=== PATIENT | female | born 1965 | race Caucasian/White ===

== ENCOUNTER → 2016-12-26 | Outpatient (CLI) | payer OTHER, BC ==
[2016-12-26 07:06] LABS: CHOLESTEROL LEVEL 183 MG/DL (<200); FREE T4 1.06 NG/DL (0.76-1.46); TRIGLYCERIDES LEVEL 82 MG/DL (<150)
[2016-12-26 10:43] LABS: THYROID PEROXIDASE ANTIBODY > 1300.0 U/ML (<60.0)
== END ==
LOC: M LAB 06:03
PROVIDERS: ATTEND Family Medicine
DX: E03.9 Hypothyroidism, unspecified (principal); E78.00 Pure hypercholesterolemia, unspecified; E55.9 Vitamin D deficiency, unspecified

== ENCOUNTER → 2017-02-02 | Outpatient (REF) | payer OTHER, BC ==
[~2017-02-02] MED LIST: ACET30TAB PO; BIOT10005 PO; CIPR500T3 PO; FLOM5CAP PO; GLUCPOW24 PO; KETO10TAB PO; LEVO88TA3 PO; PERCOCET PO; VITA100037 PO
[2017-02-02 22:22] LABS: MICROSCOPIC INDICATED? MAN YES (NO)
[2017-02-02 22:31] LABS: MICROSCOPIC EXAM PERFORMED
[2017-02-02 22:32] LABS: BACTERIA, URINE MOD AMOUNT; HYALINE CAST, URINE NONE SEEN /lpf (0-1); RBC, URINE 30-40 /hpf (0-3); SQUAMOUS EPITHELIAL CELL URINE MOD AMOUNT /hpf (SMALL AMT)
== END ==
LOC: M LAB REF 08:57
PROVIDERS: ATTEND Physician Assistant
DX: N39.0 Urinary tract infection, site not specified (principal)

== ENCOUNTER → 2017-02-05 | Outpatient (CLI) | payer OTHER, BC ==
--- NOTE | 2017-02-05 10:33 | REP ---
Clinical: Left flank pain. Findings: Mild acute left-sided obstructive uropathy with hydronephrosis and proximal hydroureter and associated periureteral stranding with a 6 mm obstructing calculus at the ureteropelvic junction (images 55 - 56). 1 mm nonobstructing left renal calculus also identified. Right kidney/ureter and bladder appear normal. Liver, spleen, pancreas, gallbladder, and bilateral adrenal glands are normal for noncontrast evaluation. The enteric system is without obstruction or acute inflammatory process. Pelvis demonstrates normal bladder and suspected myomatous changes to the uterus. Small amount of pelvic free fluid is nonspecific. Mild atherosclerotic changes to the aorta and vasculature without aneurysm. No ascites. No free air. No obvious adenopathy. Musculoskeletal structures are intact. Lung bases are clear. Impression: 1. Mild acute left-sided obstructive uropathy with a 6 mm obstructing calculus at the ureteropelvic junction and 1 mm nonobstructing left renal stone right kidney/ureter and bladder are normal. 2. Presumed myomatous changes to the uterus. Signed by Nikko Sommer MD 02/05/2017 10:24 A
== END ==
LOC: M RAD 09:58
PROVIDERS: ATTEND Physician Assistant Medical
DX: R10.9 Unspecified abdominal pain (principal)

== ENCOUNTER → 2017-02-06 | Day surgery (SDC) | payer OTHER, BC ==
[~2017-02-06] MED LIST changes: -BIOT10005 PO; +BIOT10008 PO; +CIPROFLOXACIN 500 MG TAB PO SCH; +CLINDAMYCIN 900 MG in APPROPRIATE DILUENT 1 EA IV ONE; +CONRAY-60 60% 50ML VIAL (Q9961) As Ordered ONE; +LIDOCAINE 2% INJ 100 MG/5 ML SDV (FOR ANES.) As Ordered ONE; +LR 1,000 ML IV SCH; +MEPERIDINE INJ 25 MG/ML VIAL (J2175) As Ordered ONE; +METOCLOPRAMIDE INJ 10MG/2ML VIAL (J2765) As Ordered ONE; +METOCLOPRAMIDE INJ 10MG/2ML VIAL (J2765) IV PRN; +MIDAZOLAM INJ 2 MG/2 ML VIAL (J2250) As Ordered ONE; +ONDANSETRON 4MG/2ML VIAL (J2405) As Ordered ONE; +ONDANSETRON 4MG/2ML VIAL (J2405) IV PRN; +PERCOCET 5MG/325MG TAB PO PRN; +PROPOFOL 200 MG/20 ML VIAL As Ordered ONE; -VITA100037 PO; +VITA100067 PO; +fentaNYL 100 MCG/2 ML INJECTION (J3010) As Ordered ONE; +fentaNYL 100 MCG/2 ML INJECTION (J3010) IV PRN
[2017-02-06] MEDS: MEPERIDINE INJ 25 MG/ML VIAL (J2175) IV PRN ×2 (19:10→19:15)
[2017-02-06 20:24] VITALS: BP 134/61
--- NOTE | 2017-02-07 06:45 | REP ---
Retrograde pyelogram: Three views. History: Ureteral stone. 1 minute 16 seconds of fluoroscopy time is reported. Findings: A sequence of three fluoroscopically obtained last image hold spot radiographs of the left abdomen document left ureteral cannulation, contrast injection, and double pigtail ureteral stent placement. Signed by Michael Wiley MD 02/07/2017 07:58 A
--- NOTE | 2017-02-07 10:57 | RO ---
DATE OF PROCEDURE: 02/06/2017 PREPROCEDURE DIAGNOSIS: Left ureteral stone 6 mm in diameter. POSTPROCEDURE DIAGNOSES: Left 6 mm proximal ureteral stone, plus a 2 mm lower pole kidney stone. PROCEDURE: Cystoscopy, plus left retrograde pyelogram, plus left ureteroscopy, plus laser stone lithotripsy, plus left basket extraction of stones, plus left double J stent placement 6-Gu[place]ian universal Cook. SURGEON: Dr. Donis Norman DIRECTOR OF ANALYTICS: None. ANESTHESIA: General. COMPLICATIONS: None. ESTIMATED BLOOD LOSS: N/A HISTORY OF PRESENT ILLNESS: This is a 51-year-old female patient that has a left 6 mm proximal ureteral stone. The patient has left hydronephrosis and a 2 mm lower pole kidney stone. The patient has consented for a cystoscopy plus left retrograde pyelogram plus left ureteroscopy, plus laser stone lithotripsy, plus left basket extraction of stones, plus left double J stent placement. DESCRIPTION OF PROCEDURE: The patient under general anesthesia in supine modified low lithotomy position, after prepping and draping the area of concern, which included the entire genitalia and abdomen. We started by introducing a cystoscope, #21-Guamanian in diameter with a videoscopic guidance. The urethra and bladder neck were totally normal. The bladder had no tumors. No stones. No foreign objects. Both ureteral orifices were excreting clear urine. We then proceeded to pass a #5-Guamanian Pollack catheter into the left ureter and did a retrograde pyelogram. There was a stone 6 mm in diameter in the left proximal ureter. There was a small stone in the lower pole of the kidney in the left side. After this, we passed the guidewire up to the kidney bypassing the stone. We took the Pollack catheter out and the cystoscopy. We passed a 28 cm in length, #4-Guamanian in diameter parallel ureteral access sheath following the guidewire up to the proximal ureter. We took the obturator out and passed a flexible ureteroscopy up the ureteral stone. We identified an impacted ureteral stone of about 6 mm in diameter. We passed a 200 micron probe holmium laser and laser lithotripsy the stone into multiple pieces at a power of 0.6 and a rate of 6. With a 0-tip basket, we grabbed the stones and took it out of the body of the patient. We then went into the kidney and did a formal nephroscopy, upper pole, mid pole and lower pole. We found a 2 mm kidney stone in the lower pole and grabbed it and took it out of the body of the patient. We then performed a nephroscopy with a flexible ureteral scope and nephrogram. There were no more stones left behind. We then did a retro ureteroscopy by removing the flexible ureteroscope and ureteral axis sheath at the same time. There were no stones in the ureter. At that moment in time, we took the ureteroscope and the ureteral access sheath and placed the cystoscope following the guidewire. Following the guidewire, we placed a double J stent, #6 Gu[place]ian universal Cook up to the kidney. Once the stent was in good position, we took the guidewire out. We could see the curl in the kidney and the curl in the bladder. We then emptied the bladder. There were no complications.
== END | disposition home or self-care (01) ==
LOC: M SDC 13:31
PROVIDERS: ATTEND Urology
DX: N20.2 Calculus of kidney with calculus of ureter (principal); E03.9 Hypothyroidism, unspecified; Z88.1 Allergy status to other antibiotic agents; Z88.6 Allergy status to analgesic agent; Z79.899 Other long term (current) drug therapy; Z86.14 Personal history of Methicillin resistant Staphylococcus aureus infection
CPT/HCPCS: 52356; 76000; 82360; 88300; C1726; C2617; J2175; J2250; J2405; J2765; J3010; Q9961

== ENCOUNTER → 2017-02-06 | Outpatient (CLI) | payer OTHER, BC ==
[~2017-02-06] MED LIST changes: -CIPROFLOXACIN 500 MG TAB PO SCH; -CLINDAMYCIN 900 MG in APPROPRIATE DILUENT 1 EA IV ONE; -CONRAY-60 60% 50ML VIAL (Q9961) As Ordered ONE; -LIDOCAINE 2% INJ 100 MG/5 ML SDV (FOR ANES.) As Ordered ONE; -LR 1,000 ML IV SCH; -MEPERIDINE INJ 25 MG/ML VIAL (J2175) As Ordered ONE; -METOCLOPRAMIDE INJ 10MG/2ML VIAL (J2765) As Ordered ONE; -METOCLOPRAMIDE INJ 10MG/2ML VIAL (J2765) IV PRN; -MIDAZOLAM INJ 2 MG/2 ML VIAL (J2250) As Ordered ONE; -ONDANSETRON 4MG/2ML VIAL (J2405) As Ordered ONE; -ONDANSETRON 4MG/2ML VIAL (J2405) IV PRN; -PERCOCET 5MG/325MG TAB PO PRN; -PROPOFOL 200 MG/20 ML VIAL As Ordered ONE; -fentaNYL 100 MCG/2 ML INJECTION (J3010) As Ordered ONE; -fentaNYL 100 MCG/2 ML INJECTION (J3010) IV PRN
[2017-02-06 13:25] LABS: INR 1.06
[2017-02-06 13:31] LABS: MEAN CORPUSCULAR HEMOGLOBIN 34.4 pg (27.0-33.0); MEAN CORPUSCULAR HGB CONC 35.9 g/dl (32.0-36.5); MEAN CORPUSCULAR VOLUME 95.8 fl (80.0-96.0); RED CELL DISTRIBUTION WIDTH 12.1 % (11.5-14.5); WHITE BLOOD COUNT 9.5 K/mm3 (4.0-10.0)
[2017-02-06 13:59] LABS: CONTROL LINE HCG INT CTR LINE PRESENT
[2017-02-06 14:04] LABS: ANION GAP 5 MEQ/L (8-16); BLOOD UREA NITROGEN 14 MG/DL (7-18); CALCIUM LEVEL 8.7 MG/DL (8.5-10.1); CARBON DIOXIDE LEVEL 28 MEQ/L (21-32); CHLORIDE LEVEL 108 MEQ/L (98-107); CREATININE FOR GFR 0.89 MG/DL (0.55-1.02); GLOMERULAR FILTRATION RATE > 60.0 (>51); GLUCOSE, FASTING 96 MG/DL (70-105); POTASSIUM SERUM 4.7 MEQ/L (3.5-5.1); SODIUM LEVEL 141 MEQ/L (136-145)
== END ==
LOC: M SMT 08:35
PROVIDERS: ATTEND Nurse Practitioner Women's Health
DX: Z01.818 Encounter for other preprocedural examination (principal); N13.2 Hydronephrosis with renal and ureteral calculous obstruction

== ENCOUNTER → 2017-02-14 | Outpatient (CLI) | payer OTHER, BC ==
[2017-02-14 10:50] LABS: FREE T4 1.16 NG/DL (0.76-1.46)
== END ==
LOC: M LAB 09:16
PROVIDERS: ATTEND Family Medicine
DX: E06.3 Autoimmune thyroiditis (principal)

== ENCOUNTER → 2017-02-20 | Outpatient (REF) | payer OTHER, BC | LOC: M SMT 17:12 | PROVIDERS: ATTEND Urology | DX: N13.2 Hydronephrosis with renal and ureteral calculous obstruction (principal) ==

== ENCOUNTER → 2017-03-01 | Outpatient (CLI) | payer OTHER, BC ==
[2017-03-01 13:28] LABS: ANION GAP 6 MEQ/L (8-16); BLOOD UREA NITROGEN 10 MG/DL (7-18); CALCIUM LEVEL 9.2 MG/DL (8.5-10.1); CARBON DIOXIDE LEVEL 26 MEQ/L (21-32); CHLORIDE LEVEL 106 MEQ/L (98-107); CREATININE FOR GFR 0.77 MG/DL (0.55-1.02); GLOMERULAR FILTRATION RATE > 60.0 (>51); GLUCOSE, FASTING 97 MG/DL (70-105); MAGNESIUM LEVEL 2.3 MG/DL (1.8-2.4); PHOSPHORUS LEVEL 2.9 MG/DL (2.5-4.9); SODIUM LEVEL 138 MEQ/L (136-145); URIC ACID 3.2 MG/DL (2.6-6.0)
== END ==
LOC: M SMT 09:10
PROVIDERS: ATTEND Urology
DX: N13.2 Hydronephrosis with renal and ureteral calculous obstruction (principal)

== ENCOUNTER → 2017-03-06 | Outpatient (CLI) | payer OTHER, BC ==
--- NOTE | 2017-03-07 06:12 | REP ---
Clinical: Abnormal menstrual bleeding. Technique: Transabdominal pelvic ultrasound followed by transvaginal examination for better evaluation of the endometrium and adnexa with color Doppler evaluation of the ovaries. Comparison: CT dated 02/05/2017. Findings: Bladder is unremarkable and measures approximately 5.3 x 6.7 x 3.7 cm . Heterogeneous anteverted myomatous uterus measures 9.3 x 4.3 x 6.0 cm . The endometrial complex measures 7.8 mm thickness. Right intramural fundal fibroid measures 1.7 cm maximal diameter; left intramural posterior fibroid measures 1.9 cm maximal diameter; posterior intramural fibroid measures 1.7 cm maximal diameter. Right ovary is normal in appearance and vascularity without evidence for torsion and measures 3.2 x 2.1 x 2.4 cm ; R I = 0.47. Left ovary measures 2.7 x 2.4 x 2.1 cm ; R I = 0.62. A 2.0 x 1.6 x 1.8 cm hypoechoic solid lesion is identified adjacent to the left ovary of uncertain etiology, but in comparison with recent noncontrast CT suggests a pedunculated fibroid. No pelvic fluid. Impression: 1. Multiple uterine fibroids measure up to 1.9 cm maximal diameter. 2. Normal bilateral ovaries without evidence for torsion. 3. 2 cm hypoechoic mass adjacent to the left ovary in the left adnexa likely represent pedunculated fibroid based on correlation with recent noncontrast CT. Consider follow-up ultrasound examination as well as contrast enhanced CT or MRI of the pelvis for further investigation. Signed by Nikko Sommer MD 03/07/2017 06:03 A
== END ==
LOC: M RAD 12:31
PROVIDERS: ATTEND Obstetrics & Gynecology
DX: N92.0 Excessive and frequent menstruation with regular cycle (principal)

== ENCOUNTER → 2017-03-26 | Outpatient (REF) | payer OTHER, BC | LOC: M LAB REF 17:15 | PROVIDERS: ATTEND Obstetrics & Gynecology | DX: Z12.4 Encounter for screening for malignant neoplasm of cervix (principal); N92.0 Excessive and frequent menstruation with regular cycle | CPT/HCPCS: 88304; G0123 ==

== ENCOUNTER → 2017-05-13 | Outpatient (CLI) | payer OTHER, BC ==
[2017-05-13 21:13] LABS: FREE T4 1.02 NG/DL (0.76-1.46)
== END ==
LOC: M LAB 16:47
PROVIDERS: ATTEND Family Medicine
DX: E06.3 Autoimmune thyroiditis (principal)

== ENCOUNTER → 2017-07-10 | Outpatient (REF) | payer OTHER | LOC: M SMT 17:34 | PROVIDERS: ATTEND Urology | DX: N20.9 Urinary calculus, unspecified (principal) ==

== ENCOUNTER → 2017-08-09 | Outpatient (CLI) | payer OTHER ==
[2017-08-09 15:10] LABS: FREE T4 1.03 NG/DL (0.76-1.46)
== END ==
LOC: M LAB 14:11
DX: E06.3 Autoimmune thyroiditis (principal)
CPT/HCPCS: 84443

== ENCOUNTER → 2017-12-11 | Outpatient (REF) | payer OTHER ==
[2017-12-11 22:42] LABS: CHOLESTEROL LEVEL 177 MG/DL (<200); CHOLESTEROL RISK RATIO 3.612 (<5); FREE T4 1.08 NG/DL (0.76-1.46); HDL CHOLESTEROL 49 MG/DL (>40); NON-HDL-C 128 MG/DL; THYROID STIMULATING HORMONE 0.535 uIU/ML (0.358-3.740); TOTAL 25(OH) VITAMIN D 47.9 NG/ML (30.0-100.0); TRIGLYCERIDES LEVEL 90 MG/DL (<150)
== END ==
LOC: M LAB REF 12-13 18:51
DX: E06.3 Autoimmune thyroiditis (principal); E55.9 Vitamin D deficiency, unspecified; E78.00 Pure hypercholesterolemia, unspecified

== ENCOUNTER → 2018-06-17 | Outpatient (CLI) | payer OTHER, BC ==
[2018-06-17 14:42] LABS: TOTAL 25(OH) VITAMIN D 22.1 NG/ML (30.0-100.0)
== END ==
LOC: M LAB 10:49
DX: E06.3 Autoimmune thyroiditis (principal); E55.9 Vitamin D deficiency, unspecified
CPT/HCPCS: 84443

== ENCOUNTER → 2018-12-12 | Outpatient (CLI) | payer OTHER, BC ==
[~2018-12-12] MED LIST changes: +ACET-716 PO; -ACET30TAB PO; +FLOM0.4C39 PO; -FLOM5CAP PO
[2018-12-12 15:37] LABS: BASO # 0.1 10^3/uL (0.0-0.2); BASO % 0.8 % (0.0-1.0); EOS # 0.2 10^3/uL (0.0-0.50); EOS % 2.5 % (0.0-3.0); HEMATOCRIT 38.6 % (36.0-47.0); HEMOGLOBIN 13.1 g/dl (12.0-15.5); LYMPH # 2.6 10^3/uL (1.5-4.5); LYMPH % 36.5 % (24.0-44.0); MEAN CORPUSCULAR HEMOGLOBIN 31.6 pg (27.0-33.0); MEAN CORPUSCULAR HGB CONC 33.9 g/dl (32.0-36.5); MEAN CORPUSCULAR VOLUME 93.2 fl (80.0-96.0); MONO # 0.6 10^3/uL (0.0-0.8); MONO % 8.5 % (0.0-5.0); NEUTROPHILS # 3.7 10^3/uL (1.8-7.7); NEUTROPHILS % 51.6 % (36.0-66.0); PLATELET COUNT, AUTOMATED 271 10^3/uL (150-450); RED BLOOD COUNT 4.14 10^6/uL (4.00-5.40); WHITE BLOOD COUNT 7.2 10^3/uL (4.0-10.0)
[2018-12-12 16:04] LABS: ALBUMIN 3.9 GM/DL (3.2-5.2); ALT/SGPT 19 U/L (12-78); BILIRUBIN,TOTAL 0.3 MG/DL (0.2-1.0); BLOOD UREA NITROGEN 16 MG/DL (7-18); CALCIUM LEVEL 8.7 MG/DL (8.5-10.1); CARBON DIOXIDE LEVEL 31 MEQ/L (21-32); CHLORIDE LEVEL 106 MEQ/L (98-107); CHOLESTEROL LEVEL 180 MG/DL (<200); CHOLESTEROL RISK RATIO 3.913 (<5); CREATININE FOR GFR 0.87 MG/DL (0.55-1.30); FREE T4 1.03 NG/DL (0.76-1.46); GLOMERULAR FILTRATION RATE > 60.0 (>51); GLUCOSE, FASTING 94 MG/DL (70-100); HDL CHOLESTEROL 46 MG/DL (>40); LDL CHOLESTEROL 109 MG/DL (<100); NON-HDL-C 134 MG/DL; POTASSIUM SERUM 4.1 MEQ/L (3.5-5.1); SODIUM LEVEL 139 MEQ/L (136-145); THYROID STIMULATING HORMONE 0.752 uIU/ML (0.358-3.740); TOTAL PROTEIN 6.5 GM/DL (6.4-8.2); TRIGLYCERIDES LEVEL 123 MG/DL (<150)
[2018-12-12 16:06] LABS: TOTAL 25(OH) VITAMIN D 58.7 NG/ML (30.0-100.0)
== END ==
LOC: M LAB 14:42
PROVIDERS: ATTEND Physician Assistant
DX: E06.3 Autoimmune thyroiditis (principal); Z13.1 Encounter for screening for diabetes mellitus; Z13.220 Encounter for screening for lipoid disorders; Z13.0 Encounter for screening for diseases of the blood and blood-forming organs and certain disorders involving the immune mechanism

== ENCOUNTER → 2019-09-14 | Outpatient (CLI) | payer OTHER ==
--- NOTE | 2019-09-15 03:10 | REP ---
Clinical: History of fibroids. Technique: Transabdominal pelvic ultrasound followed by transvaginal examination for better evaluation of the endometrium and adnexa. Comparison: 03/06/2017. Findings: Bladder is normal and measures 11.7 x 6.3 x 9.4 cm. Heterogeneous anteverted myomatous uterus measures 10.1 x 4.7 x 5.9 cm. Right fundal fibroid measures 3.3 cm maximal diameter; fundal intramural/ submucosal fibroid measures 1.6 cm maximal diameter; left subserosal/pedunculated fibroid measures 1.8 cm maximal diameter. Left ovary is not visualized. Right ovary measures 6.6 x 3.4 x 2.9 cm (RI 0.71) and includes 4.5 cm and 4.8 cm cysts. No pelvic fluid or adnexal mass lesion. Impression: 1. Myomatous changes to the uterus which appear to be increased from 2017. 2. Cystic changes to the right ovary warrant 4-6 weeks reevaluation. Electronically Signed by Nikko Sommer MD 09/15/2019 03:02 A
== END ==
LOC: M RAD 15:09
PROVIDERS: ATTEND Obstetrics & Gynecology
DX: D25.1 Intramural leiomyoma of uterus (principal); D25.2 Subserosal leiomyoma of uterus; D25.0 Submucous leiomyoma of uterus; N95.1 Menopausal and female climacteric states; N83.201 Unspecified ovarian cyst, right side

== ENCOUNTER → 2019-10-29 | Outpatient (CLI) | payer OTHER ==
--- NOTE | 2019-10-29 20:16 | REP ---
Clinical: Follow up right ovarian cyst. Technique: Transabdominal pelvic ultrasound followed by transvaginal examination for better evaluation of the endometrium and adnexa with color Doppler evaluation of the ovaries. Comparison: 09/14/2019. Findings: Anteverted myomatous uterus again noted measuring 9.3 x 4.5 x 6.3 cm. Fundal fibroids measure 3.3 cm and 1.0 cm maximal diameter along with left lateral intramural fibroid measuring 1.1 cm maximal diameter. Endometrial complex measures 4 mm thickness. Left ovary is normal in appearance and vascularity without torsion measuring 2.3 x 1.6 x 1.2 cm (RI 0.71). Right ovary measures 5.1 x 3.6 x 4.9 cm (RI 0.71) and now includes 4.3 x 2.8 x 3.2 cm simple cyst. No pelvic fluid or adnexal mass lesion. Bladder is under distended and measures 5.4 x 2.6 x 5.0 cm. Impression: 1. Anteverted myomatous uterus similar to prior examinations. 2. Right ovary now demonstrates a single solitary cyst measuring 4.3 cm (previous examination demonstrated two distinct cysts). Electronically Signed by Nikko Sommer MD 10/29/2019 08:08 P
== END ==
LOC: M RAD 11:14
PROVIDERS: ATTEND Obstetrics & Gynecology
DX: N83.291 Other ovarian cyst, right side (principal); D25.1 Intramural leiomyoma of uterus; N85.4 Malposition of uterus

== ENCOUNTER → 2020-12-25 | Outpatient (CLI) | payer OTHER, BC ==
[2020-12-25 09:23] LABS: BASO % 0.4 % (0.0-1.0); EOS # 0.1 10^3/uL (0.0-0.5); EOS % 1.3 % (0.0-3.0); HEMATOCRIT 41.3 % (36.0-47.0); HEMOGLOBIN 13.9 g/dl (12.0-15.5); LYMPH # 1.9 10^3/uL (1.5-5.0); LYMPH % 25.1 % (24.0-44.0); MEAN CORPUSCULAR HEMOGLOBIN 31.8 pg (27.0-33.0); MEAN CORPUSCULAR HGB CONC 33.7 g/dl (32.0-36.5); MEAN CORPUSCULAR VOLUME 94.5 fl (80.0-96.0); MONO # 0.7 10^3/uL (0.0-0.8); MONO % 8.7 % (2.0-8.0); NEUTROPHILS # 4.8 10^3/uL (1.5-8.5); NEUTROPHILS % 64.2 % (36.0-66.0); PLATELET COUNT, AUTOMATED 262 10^3/uL (150-450); RED BLOOD COUNT 4.37 10^6/uL (4.00-5.40); WHITE BLOOD COUNT 7.5 10^3/uL (4.0-10.0)
[2020-12-25 10:03] LABS: ALBUMIN 3.6 GM/DL (3.2-5.2); ALT/SGPT 20 U/L (12-78); BILIRUBIN,TOTAL 0.6 MG/DL (0.2-1.0); BLOOD UREA NITROGEN 11 MG/DL (7-18); CALCIUM LEVEL 8.7 MG/DL (8.5-10.1); CARBON DIOXIDE LEVEL 29 MEQ/L (21-32); CHLORIDE LEVEL 110 MEQ/L (98-107); CHOLESTEROL LEVEL 180 MG/DL (<200); CHOLESTEROL RISK RATIO 3.103 (<5); CREATININE FOR GFR 0.74 MG/DL (0.55-1.30); GLOMERULAR FILTRATION RATE > 60.0 (>51); GLUCOSE, FASTING 92 MG/DL (70-100); HDL CHOLESTEROL 58 MG/DL (>40); LDL CHOLESTEROL 111 MG/DL (<100); NON-HDL-C 122 MG/DL; POTASSIUM SERUM 4.1 MEQ/L (3.5-5.1); SODIUM LEVEL 142 MEQ/L (136-145); TOTAL PROTEIN 6.5 GM/DL (6.4-8.2); TRIGLYCERIDES LEVEL 55 MG/DL (<150)
[2020-12-26 10:26] LABS: TOTAL 25(OH) VITAMIN D 38.5 NG/ML (30.0-100.0)
== END ==
LOC: M LAB 09:00
PROVIDERS: ATTEND Family Medicine
DX: E06.3 Autoimmune thyroiditis (principal); Z13.0 Encounter for screening for diseases of the blood and blood-forming organs and certain disorders involving the immune mechanism; Z13.29 Encounter for screening for other suspected endocrine disorder; Z13.220 Encounter for screening for lipoid disorders

== ENCOUNTER → 2021-09-14 | Outpatient (REF) | payer OTHER, BC | LOC: M SFHCWAGY 17:01 | PROVIDERS: ATTEND Obstetrics & Gynecology | DX: Z12.4 Encounter for screening for malignant neoplasm of cervix (principal) ==

== ENCOUNTER → 2022-01-04 | Outpatient (CLI) | payer OTHER, BC ==
[2022-01-04 12:43] LABS: BASO % 0.5 % (0.0-1.0); EOS # 0.1 10^3/uL (0.0-0.5); EOS % 1.1 % (0.0-3.0); HEMATOCRIT 41.2 % (36.0-47.0); HEMOGLOBIN 13.8 g/dl (12.0-15.5); LYMPH # 2.2 10^3/uL (1.5-5.0); LYMPH % 29.5 % (24.0-44.0); MEAN CORPUSCULAR HEMOGLOBIN 31.4 pg (27.0-33.0); MEAN CORPUSCULAR HGB CONC 33.5 g/dl (32.0-36.5); MEAN CORPUSCULAR VOLUME 93.6 fl (80.0-96.0); MONO # 0.8 10^3/uL (0.0-0.8); MONO % 10.8 % (2.0-8.0); NEUTROPHILS # 4.2 10^3/uL (1.5-8.5); NEUTROPHILS % 57.8 % (36.0-66.0); PLATELET COUNT, AUTOMATED 271 10^3/uL (150-450); WHITE BLOOD COUNT 7.3 10^3/uL (4.0-10.0)
[2022-01-04 13:19] LABS: ALBUMIN 3.9 GM/DL (3.2-5.2); ALT/SGPT 124 U/L (12-78); BILIRUBIN,TOTAL 0.7 MG/DL (0.2-1.0); BLOOD UREA NITROGEN 14 MG/DL (7-18); CALCIUM LEVEL 9.3 MG/DL (8.5-10.1); CARBON DIOXIDE LEVEL 29 MEQ/L (21-32); CHLORIDE LEVEL 109 MEQ/L (98-107); CHOLESTEROL LEVEL 202 MG/DL (<200); CHOLESTEROL RISK RATIO 3.543 (<5); CREATININE FOR GFR 0.76 MG/DL (0.55-1.30); FREE T4 1.23 NG/DL (0.76-1.46); GLOMERULAR FILTRATION RATE > 60.0 (>51); GLUCOSE, FASTING 87 MG/DL (70-100); HDL CHOLESTEROL 57 MG/DL (>40); LDL CHOLESTEROL 129 MG/DL (<100); NON-HDL-C 145 MG/DL; POTASSIUM SERUM 4.4 MEQ/L (3.5-5.1); SODIUM LEVEL 139 MEQ/L (136-145); THYROID STIMULATING HORMONE 0.153 uIU/ML (0.358-3.740); TOTAL PROTEIN 6.8 GM/DL (6.4-8.2); TRIGLYCERIDES LEVEL 81 MG/DL (<150)
[2022-01-04 13:35] LABS: TOTAL 25(OH) VITAMIN D 50.4 NG/ML (30.0-100.0)
== END ==
LOC: M LAB 11:39
PROVIDERS: ATTEND Family Medicine
DX: E06.3 Autoimmune thyroiditis (principal); Z13.220 Encounter for screening for lipoid disorders; Z13.0 Encounter for screening for diseases of the blood and blood-forming organs and certain disorders involving the immune mechanism; Z13.29 Encounter for screening for other suspected endocrine disorder; R06.3 Periodic breathing

== ENCOUNTER → 2022-01-26 | Outpatient (CLI) | payer OTHER, BC | LOC: M WHC 13:29 | PROVIDERS: ATTEND Family Medicine | DX: R10.2 Pelvic and perineal pain (principal); D25.9 Leiomyoma of uterus, unspecified ==

== ENCOUNTER → 2022-02-13 | Outpatient (CLI) | payer OTHER, BC ==
[2022-02-13 11:51] LABS: ALBUMIN 3.8 GM/DL (3.2-5.2); ALT/SGPT 52 U/L (12-78); BILIRUBIN,TOTAL 0.5 MG/DL (0.2-1.0); BLOOD UREA NITROGEN 13 MG/DL (7-18); CALCIUM LEVEL 9.3 MG/DL (8.5-10.1); CARBON DIOXIDE LEVEL 29 MEQ/L (21-32); CHLORIDE LEVEL 107 MEQ/L (98-107); CREATININE FOR GFR 0.86 MG/DL (0.55-1.30); FREE T4 1.21 NG/DL (0.76-1.46); GLOMERULAR FILTRATION RATE > 60.0 (>51); GLUCOSE, FASTING 86 MG/DL (70-100); HEPATITIS B CORE ANTIBODY IGM NEGATIVE (NEGATIVE); HEPATITIS B SURFACE ANTIBODY NEGATIVE (POSITIVE); HEPATITIS B SURFACE ANTIGEN NEGATIVE (NEGATIVE); HEPATITIS C VIRUS ABY INDEX 0.1 INDEX (<0.8); POTASSIUM SERUM 4.1 MEQ/L (3.5-5.1); SODIUM LEVEL 140 MEQ/L (136-145); THYROID STIMULATING HORMONE 0.179 uIU/ML (0.358-3.740); TOTAL PROTEIN 6.8 GM/DL (6.4-8.2)
== END ==
LOC: M LAB 09:53
PROVIDERS: ATTEND Family Medicine
DX: R74.01 Elevation of levels of liver transaminase levels (principal); E06.3 Autoimmune thyroiditis

== ENCOUNTER → 2022-03-20 | Outpatient (CLI) | payer OTHER, BC ==
[2022-03-20 07:48] LABS: FREE T4 1.01 NG/DL (0.76-1.46); THYROID STIMULATING HORMONE 0.238 uIU/ML (0.358-3.740)
== END ==
LOC: M LAB 06:38
PROVIDERS: ATTEND Family Medicine
DX: E06.3 Autoimmune thyroiditis (principal)

== ENCOUNTER → 2022-10-02 | Outpatient (CLI) | payer OTHER, BC ==
[2022-10-02 07:57] LABS: FREE T4 1.07 NG/DL (0.89-1.76)
[2022-10-02 07:58] LABS: THYROID STIMULATING HORMONE 1.316 uIU/ML (0.55-4.78)
== END ==
LOC: M LAB 06:54
PROVIDERS: ATTEND Family Medicine
DX: E06.3 Autoimmune thyroiditis (principal)

== ENCOUNTER → 2022-10-09 | Outpatient (CLI) | payer OTHER, BC | LOC: M WHC 07:01 | PROVIDERS: ATTEND Family Medicine | DX: Z12.31 Encounter for screening mammogram for malignant neoplasm of breast (principal) ==

== ENCOUNTER → 2022-10-31 | Outpatient (CLI) | payer OTHER, BC ==
[2022-10-31 14:31] LABS: BASO % 0.4 % (0.0-1.0); EOS # 0.1 10^3/uL (0.0-0.5); EOS % 1.4 % (0.0-3.0); HEMATOCRIT 42.8 % (36.0-47.0); HEMOGLOBIN 14.2 g/dl (12.0-15.5); LYMPH # 2.1 10^3/uL (1.5-5.0); MEAN CORPUSCULAR HEMOGLOBIN 30.9 pg (27.0-33.0); MEAN CORPUSCULAR HGB CONC 33.2 g/dl (32.0-36.5); MONO # 0.6 10^3/uL (0.0-0.8); MONO % 7.7 % (2.0-8.0); NEUTROPHILS # 4.9 10^3/uL (1.5-8.5); NEUTROPHILS % 63.4 % (36.0-66.0); PLATELET COUNT, AUTOMATED 271 10^3/uL (150-450); WHITE BLOOD COUNT 7.8 10^3/uL (4.0-10.0)
[2022-10-31 14:55] LABS: ALBUMIN 3.9 G/DL (3.2-5.2); ALKALINE PHOSPHATASE 81 U/L (46-116); ALT/SGPT 23 U/L (7.0-40); AST/SGOT 21 U/L (<34); BILIRUBIN,TOTAL 0.8 MG/DL (0.3-1.2); BLOOD UREA NITROGEN 14 MG/DL (9-23); CALCIUM LEVEL 9.4 MG/DL (8.5-10.1); CARBON DIOXIDE LEVEL 28 MMOL/L (20-31); CHLORIDE LEVEL 105 MMOL/L (98-107); GLOMERULAR FILTRATION RATE > 60.0 (>51); GLUCOSE, FASTING 84 MG/DL (60-100); POTASSIUM SERUM 4.3 MMOL/L (3.5-5.1); SODIUM LEVEL 140 MMOL/L (136-145); TOTAL PROTEIN 6.6 G/DL (5.7-8.2)
== END ==
LOC: M LAB 13:41
PROVIDERS: ATTEND Family Medicine
DX: Z01.818 Encounter for other preprocedural examination (principal)

== ENCOUNTER → 2023-05-01 | Outpatient (CLI) | payer OTHER, BC ==
[2023-05-01 06:35] LABS: BASO % 0.6 % (0.0-1.0); EOS # 0.2 10^3/uL (0.0-0.5); HEMATOCRIT 42.4 % (36.0-47.0); HEMOGLOBIN 14.1 g/dl (12.0-15.5); LYMPH # 2.4 10^3/uL (1.5-5.0); LYMPH % 38.2 % (24.0-44.0); MEAN CORPUSCULAR HEMOGLOBIN 30.7 pg (27.0-33.0); MEAN CORPUSCULAR HGB CONC 33.3 g/dl (32.0-36.5); MEAN CORPUSCULAR VOLUME 92.4 fl (80.0-96.0); MONO # 0.7 10^3/uL (0.0-0.8); MONO % 10.7 % (2.0-8.0); NEUTROPHILS % 47.3 % (36.0-66.0); PLATELET COUNT, AUTOMATED 251 10^3/uL (150-450); RED BLOOD COUNT 4.59 10^6/uL (4.00-5.40); WHITE BLOOD COUNT 6.3 10^3/uL (4.0-10.0)
[2023-05-01 07:01] LABS: ALBUMIN 3.9 G/DL (3.2-5.2); ALKALINE PHOSPHATASE 82 U/L (46-116); ALT/SGPT 19 U/L (7.0-40); AST/SGOT 18 U/L (<34); BILIRUBIN,TOTAL 0.8 MG/DL (0.3-1.2); BLOOD UREA NITROGEN 14 MG/DL (9-23); CALCIUM LEVEL 9.2 MG/DL (8.5-10.1); CARBON DIOXIDE LEVEL 30 MMOL/L (20-31); CHLORIDE LEVEL 107 MMOL/L (98-107); CHOLESTEROL LEVEL 221 MG/DL (<200); CHOLESTEROL RISK RATIO 3.93 (<5); CREATININE FOR GFR 0.82 MG/DL (0.55-1.30); GLOMERULAR FILTRATION RATE > 60.0 (>51); GLUCOSE, FASTING 98 MG/DL (60-100); HDL CHOLESTEROL 56.1 MG/DL (>40); LDL CHOLESTEROL 143.7 MG/DL (<100); NON-HDL-C 164.9 MG/DL; POTASSIUM SERUM 4.2 MMOL/L (3.5-5.1); SODIUM LEVEL 142 MMOL/L (136-145); TOTAL PROTEIN 6.6 G/DL (5.7-8.2); TRIGLYCERIDES LEVEL 106 MG/DL (<150)
[2023-05-01 07:02] LABS: TOTAL 25(OH) VITAMIN D 36.7 NG/ML (20.0-100.0)
[2023-05-01 07:03] LABS: FREE T4 1.13 NG/DL (0.89-1.76); THYROID STIMULATING HORMONE 0.578 uIU/ML (0.55-4.78)
== END ==
LOC: M LAB 06:02
PROVIDERS: ATTEND Family Medicine
DX: E06.3 Autoimmune thyroiditis (principal)

== ENCOUNTER → 2024-04-29 | Outpatient (REF) | payer OTHER, BC ==
[2024-04-29 14:27] LABS: BASO % 0.8 % (0.0-1.0); EOS # 0.1 10^3/uL (0.0-0.5); EOS % 1.8 % (0.0-3.0); HEMATOCRIT 42.9 % (36.0-47.0); HEMOGLOBIN 14.3 g/dl (12.0-15.5); LYMPH # 1.5 10^3/uL (1.5-5.0); LYMPH % 29.8 % (24.0-44.0); MEAN CORPUSCULAR HGB CONC 33.3 g/dl (32.0-36.5); MEAN CORPUSCULAR VOLUME 93.1 fl (80.0-96.0); MONO # 0.5 10^3/uL (0.0-0.8); MONO % 9.4 % (2.0-8.0); PLATELET COUNT, AUTOMATED 261 10^3/uL (150-450); RED BLOOD COUNT 4.61 10^6/uL (4.00-5.40); WHITE BLOOD COUNT 5.1 10^3/uL (4.0-10.0)
[2024-04-29 14:57] LABS: ALBUMIN 3.8 G/DL (3.2-5.2); ALKALINE PHOSPHATASE 82 U/L (46-116); ALT/SGPT 13 U/L (7.0-40); AST/SGOT 11 U/L (<34); BILIRUBIN,TOTAL 0.7 MG/DL (0.3-1.2); BLOOD UREA NITROGEN 13 MG/DL (9-23); CALCIUM LEVEL 9.7 MG/DL (8.5-10.1); CARBON DIOXIDE LEVEL 29 MMOL/L (20-31); CHLORIDE LEVEL 107 MMOL/L (98-107); CHOLESTEROL LEVEL 214 MG/DL (<200); CHOLESTEROL RISK RATIO 4.76 (<5); CREATININE FOR GFR 0.84 MG/DL (0.55-1.30); GLOMERULAR FILTRATION RATE > 60.0 (>51); GLUCOSE, FASTING 101 MG/DL (60-100); HDL CHOLESTEROL 44.9 MG/DL (>40); LDL CHOLESTEROL 148.3 MG/DL (<100); NON-HDL-C 169.1 MG/DL; POTASSIUM SERUM 4.2 MMOL/L (3.5-5.1); SODIUM LEVEL 140 MMOL/L (136-145); TOTAL PROTEIN 6.7 G/DL (5.7-8.2); TRIGLYCERIDES LEVEL 104 MG/DL (<150)
[2024-04-29 14:58] LABS: FREE T4 1.34 NG/DL (0.89-1.76); THYROID STIMULATING HORMONE 0.742 uIU/ML (0.55-4.78)
[2024-04-29 14:59] LABS: TOTAL 25(OH) VITAMIN D 43.8 NG/ML (20.0-100.0)
[2024-04-29 17:08] LABS: HEMOGLOBIN A1c 5.4 % (4.0-6.0)
== END ==
LOC: M LAB REF 12:43
PROVIDERS: ATTEND Family Medicine
DX: E06.3 Autoimmune thyroiditis (principal); E78.00 Pure hypercholesterolemia, unspecified; R73.01 Impaired fasting glucose

== ENCOUNTER → 2024-07-17 | Outpatient (CLI) | payer BC, OTHER | LOC: M WHC 09:57 | PROVIDERS: ATTEND Family Medicine | DX: Z12.31 Encounter for screening mammogram for malignant neoplasm of breast (principal); Z13.820 Encounter for screening for osteoporosis; M85.89 Other specified disorders of bone density and structure, multiple sites; R92.333 Mammographic heterogeneous density, bilateral breasts ==

== ENCOUNTER → 2025-02-09 | Outpatient (CLI) | payer OTHER, BC ==
[~2025-02-09] MED LIST changes: -FLOM0.4C39 PO; +TAMS-18 PO
== END ==
LOC: M RAD 16:19
PROVIDERS: ATTEND Urology
DX: N13.2 Hydronephrosis with renal and ureteral calculous obstruction (principal)

== ENCOUNTER → 2025-02-28 | Outpatient (CLI) | payer OTHER, BC ==
[2025-03-04 20:07] LABS: LYME TOTAL ANTIBODY CIA <= 0.90 Index (<=0.90)
== END ==
LOC: M LAB 09:30
DX: T14.8XXA Other injury of unspecified body region, initial encounter (principal); W57.XXXA Bitten or stung by nonvenomous insect and other nonvenomous arthropods, initial encounter; Y92.9 Unspecified place or not applicable; Y93.9 Activity, unspecified; Y99.9 Unspecified external cause status

== ENCOUNTER → 2025-03-29 | Outpatient (CLI) | payer OTHER, BC | LOC: M LAB 03-28 08:02 | PROVIDERS: ATTEND Family Medicine | DX: M79.10 Myalgia, unspecified site (principal); M25.50 Pain in unspecified joint ==

== ENCOUNTER → 2025-05-03 | Outpatient (CLI) | payer OTHER, BC | LOC: M WHC 14:12 | PROVIDERS: ATTEND Internal Medicine Rheumatology | DX: M81.0 Age-related osteoporosis without current pathological fracture (principal); Z79.52 Long term (current) use of systemic steroids ==

== ENCOUNTER → 2025-05-05 | Outpatient (REF) | payer OTHER, BC ==
[2025-05-05 15:13] LABS: BASO # 0.0 10^3/uL (0.0-0.2); BASO % 0.4 % (0.0-1.0); EOS # 0.1 10^3/uL (0.0-0.5); EOS % 1.0 % (0.0-3.0); LYMPH # 2.0 10^3/uL (1.5-5.0); LYMPH % 28.5 % (24.0-44.0); MONO # 0.6 10^3/uL (0.0-0.8); MONO % 9.0 % (2.0-8.0); NEUTROPHILS # 4.4 10^3/uL (1.5-8.5); NEUTROPHILS % 60.8 % (36.0-66.0); PLATELET COUNT, AUTOMATED 360 10^3/uL (150-450)
[2025-05-05 15:17] LABS: TOTAL 25(OH) VITAMIN D 65.5 NG/ML (20.0-100.0)
[2025-05-05 15:21] LABS: ALT/SGPT 24.0 U/L (7.0-40); AST/SGOT 12.0 U/L (<34); CALCIUM LEVEL 9.1 MG/DL (8.5-10.1); CARBON DIOXIDE LEVEL 30.0 MMOL/L (20-31); CHLORIDE LEVEL 109.0 MMOL/L (98-107); CHOLESTEROL LEVEL 239.0 MG/DL (<200); CHOLESTEROL RISK RATIO 4.08 (<5); CREATININE FOR GFR 0.89 MG/DL (0.55-1.30); GLOMERULAR FILTRATION RATE 74.6 (>51); LDL CHOLESTEROL 162.7 MG/DL (<100); NON-HDL-C 180.5 MG/DL; POTASSIUM SERUM 5.4 MMOL/L (3.5-5.1); SODIUM LEVEL 141.0 MMOL/L (136-145); TRIGLYCERIDES LEVEL 89.0 MG/DL (<150)
[2025-05-05 15:24] LABS: FREE T4 1.27 NG/DL (0.89-1.76)
== END ==
LOC: M LAB REF 13:06
PROVIDERS: ATTEND Family Medicine
DX: E78.00 Pure hypercholesterolemia, unspecified (principal); E06.3 Autoimmune thyroiditis

== ENCOUNTER → 2025-06-23 | Outpatient (CLI) | payer OTHER, BC | LOC: M PLAIMG 06-21 15:22 → M RAD 09:15 | PROVIDERS: ATTEND Internal Medicine Rheumatology | DX: M23.611 Other spontaneous disruption of anterior cruciate ligament of right knee (principal); S83.281A Other tear of lateral meniscus, current injury, right knee, initial encounter; S83.241A Other tear of medial meniscus, current injury, right knee, initial encounter; M17.11 Unilateral primary osteoarthritis, right knee; M71.21 Synovial cyst of popliteal space [Baker], right knee; M25.461 Effusion, right knee; Y92.9 Unspecified place or not applicable; Y93.9 Activity, unspecified; Y99.9 Unspecified external cause status ==